=== PATIENT | female | born 1985 | race African-American/Black ===

== ENCOUNTER 2017-12-09 11:24 | Emergency (ER) | payer OTHER ==
[2017-12-09 12:32] LABS: NEGATIVE OBC STREP NEG
[2017-12-09 12:33] LABS: POSITIVE OBC STREP POS
== END 2017-12-09 12:30 | disposition home or self-care (01) ==
LOC: ER 12:30
DX: J03.90 Acute tonsillitis, unspecified (principal); H66.93 Otitis media, unspecified, bilateral
CPT/HCPCS: 87070; 87880; 99283

== ENCOUNTER 2018-08-08 20:07 | Emergency (ER) | payer OTHER ==
[~2018-08-08] VITALS: Ht 170.2 cm; Wt 127.0 kg
[~2018-08-08 20:07] MED LIST: AMOX875T PO; PRED50TA PO
[2018-08-08 20:36] VITALS: BP 163/82
[2018-08-08] MEDS ORDERED: AMMO226L TP (21:02)
[2018-08-08] MEDS ORDERED: MELO7.5T29 PO (21:02)
--- NOTE | 2018-08-08 21:02 | PHYS DOC ---
Past Medical History Past Medical History: No Pertinent History Past Surgical History: , Tubal ligation Alcohol Use: None Drug Use: None Adult General Chief Complaint Chief Complaint: SKIN PROBLEM HPI HPI Patient is a 33 year old female who presents with bilateral foot skin issue. This is been present and getting worse over the past month. No trauma. No fever. Nothing seems to make it worse or better. 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 Denies any prolonged submersion issues. Denies any polyuria, polydipsia, polyphagia consistent with diabetes. Pain is mild to moderate in intensity[] Review of Systems Review of Systems Constitutional: Denies fever or chills [] Eyes: Denies change in visual acuity, redness, or eye pain [] HENT: Denies nasal congestion or sore throat [] Respiratory: Denies cough or shortness of breath [] Cardiovascular: No chest pain or palpitations[] GI: Denies abdominal pain, nausea, vomiting, bloody stools or diarrhea [] : Denies dysuria or hematuria [] Musculoskeletal: Denies back pain or joint pain [] Integument: See history of present illness[] Neurologic: Denies headache, focal weakness or sensory changes [] Endocrine: Denies polyuria or polydipsia [] All other systems were reviewed and found to be within normal limits, except as documented in this note. Allergies Allergies Allergies Coded Allergies Type Severity Reaction Last Updated Verified No Known Drug Allergies 12/09/17 No Physical Exam Physical Exam Constitutional: Well developed, well nourished, no acute distress, non-toxic appearance. [] HENT: Normocephalic, atraumatic, bilateral external ears normal, oropharynx moist, no oral exudates, nose normal. [] Eyes: PERRLA, EOMI, conjunctiva normal, no discharge. [] Neck: Normal range of motion, no tenderness, supple, no stridor. [] Cardiovascular:Heart rate regular rhythm, no murmur [] Lungs & Thorax: Bilateral breath sounds clear to auscultation [] Abdomen: Not examined[] Skin: Warm, dry, no erythema, firm skin on the lateral portion of both feet, 1 cm x 4 cm in length. Runs parallel to the fifth metatarsal on the plantar surface. There is no petechiae. No skin sloughing. [] Back: No tenderness, no CVA tenderness. [] Extremities: No tenderness, no cyanosis, no clubbing, ROM intact, no edema. [] Neurologic: Alert and oriented X 3, normal motor function, normal sensory function, no focal deficits noted. [] Psychologic: Affect normal, judgement normal, mood normal. [] EKG EKG [] Radiology/Procedures Radiology/Procedures [] Course & Med Decision Making Course & Med Decision Making Pertinent Labs and Imaging studies reviewed. (See chart for details) Medical Decision making: No evidence of staph scalded skin syndrome, no toxic epidermal necrolysis, no cellulitis nor abscess.[] Dragon Disclaimer Dragon Disclaimer This electronic medical record was generated, in whole or in part, using a voice recognition dictation system. Departure Departure Impression: Primary Impression: Callus of foot Disposition: HOME, SELF-CARE Condition: GOOD Referrals: NO PCP (PCP) Patient Instructions: [facility] Additional Instructions: Follow-up with your regular doctor in 2 days. If you do not have regular doctor , list of local low-cost clinics will be provided for you. Return to the ER if worsening pain or any other concerns Scripts Meloxicam (MELOXICAM) 7.5 Mg Tablet 7.5 MG PO DAILY, #20 TAB Prov: DENA JEWELL DO 08/08/18 Ammonium Lactate (Lac-Hydrin Five) 226 Gm Lotion 1 SHAD TP BID, #226 GM Prov: DENA JEWELL DO 08/08/18 DENA JEWELL DO Aug 08, 2018 21:02
== END 2018-08-08 21:12 | disposition home or self-care (01) ==
LOC: ER 20:07
DX: L84 Corns and callosities (principal)
CPT/HCPCS: 99283

== ENCOUNTER 2019-07-15 13:22 | Emergency (ER) | payer OTHER ==
[~2019-07-15] VITALS: Ht 172.7 cm; Wt 127.0 kg
[~2019-07-15 13:22] MED LIST changes: +AMMO226L TP; +MELO7.5T29 PO
[2019-07-15] MEDS ORDERED: IV NORMAL SALINE 1000ML BAG 1,000 ML IV ONE (14:00)
[2019-07-15 14:06] LABS: BILIRUBIN,URINE NEGATIVE (NEG); CLARITY,URINE CLEAR; COLOR,URINE YELLOW; NITRITE,URINE NEGATIVE (NEG); PH,URINE 6.5; PROTEIN,URINE NEGATIVE (NEG-TRACE); UROBILINOGEN,URINE 0.2 mg/dL (0.2 mg/dL)
--- NOTE | 2019-07-15 14:17 | PHYS DOC ---
Past Medical History Past Medical History: No Pertinent History Past Surgical History: , Tubal ligation Alcohol Use: None Drug Use: None Adult General Chief Complaint Chief Complaint: SHOULDER INJURY [facility] HPI Patient is a 34-year-old female who presents with complaint of right shoulder pain. Patient states that she had been sitting on the toilet today and next thing she knew she was lying on the ground. She states that her daughter had found her lying on the ground and patient thinks that she must of had a syncopal episode. She doesn't recall having fallen. She does indicate that she has had syncope in the past. She denies any chest pain or shortness of breath. She rates the pain in her right shoulder tonight out of 10. She denies any head injury. She states that pain in her shoulder is worsened with movement.[] Review of Systems Review of Systems Constitutional: Denies fever or chills [] Eyes: Denies change in visual acuity, redness, or eye pain [] Respiratory: Denies cough or shortness of breath [] Cardiovascular: No additional information not addressed in HPI [] GI: Denies abdominal pain, nausea, vomiting or diarrhea [] Musculoskeletal: Complains of right shoulder pain [] Integument: Denies rash or skin lesions [] Neurologic: Denies headache, focal weakness or sensory changes. Positive syncopal episode [] All other systems were reviewed and found to be within normal limits, except as documented in this note. Current Medications Current Medications Current Medications Medications (Trade) Dose Ordered Sig/Radha Start Time Stop Time Status Last Admin Dose Admin Sodium Chloride 1,000 ml @ 1,000 mls/hr 1X ONCE 07/15/19 14:00 07/15/19 14:59 DC 07/15/19 14:25 1,000 MLS/HR Allergies Allergies Allergies Coded Allergies Type Severity Reaction Last Updated Verified No Known Drug Allergies 12/09/17 No Physical Exam Physical Exam Constitutional: Well developed, well nourished, no acute distress, non-toxic appearance. [] HENT: Normocephalic, atraumatic, bilateral external ears normal, oropharynx moist, no oral exudates, nose normal. [] Eyes: PERRLA, EOMI, conjunctiva normal, no discharge. [] Neck: Normal range of motion, no tenderness, supple. [] Cardiovascular: Regular rate and rhythm[] Lungs & Thorax: Bilateral breath sounds clear to auscultation [] Abdomen: Bowel sounds normal, soft, no tenderness. [] Skin: Warm, dry, no erythema, no rash. [] Extremities: No tenderness, no cyanosis, no clubbing, ROM intact. [] Neurologic: Alert and oriented X 3, no focal deficits noted. [] Current Patient Data Vital Signs Vital Signs Date Time Temp Pulse Resp B/P (MAP) Pulse Ox O2 Delivery O2 Flow Rate FiO2 07/15/19 13:50 97.6 105 16 165/90 (115) 98 Room Air 97.6 Lab Values Laboratory Tests Test 07/15/19 13:40 07/15/19 13:46 07/15/19 14:18 Urine Collection Type Unknown Urine Color Yellow Urine Clarity Clear Urine pH 6.5 Urine Specific [place] 1.020 Urine Protein Negative mg/dL (NEG-TRACE) Urine Glucose (UA) Negative mg/dL (NEG) Urine Ketones (Stick) Negative mg/dL (NEG) Urine Blood Negative (NEG) Urine Nitrite Negative (NEG) Urine Bilirubin Negative (NEG) Urine Urobilinogen Dipstick 0.2 mg/dL (0.2 mg/dL) Urine Leukocyte Esterase Negative (NEG) Urine RBC 0 /HPF (0-2) Urine WBC Occ /HPF (0-4) Urine Squamous Epithelial Cells Mod /LPF Urine Bacteria Few /HPF (0-FEW) POC Urine HCG, Qualitative Hcg negative (Negative) White Blood Count 8.1 x10^3/uL (4.0-11.0) Red Blood Count 4.65 x10^6/uL (3.50-5.40) Hemoglobin 12.4 g/dL (12.0-15.5) Hematocrit 38.1 % (36.0-47.0) Mean Corpuscular Volume 82 fL (79-100) Mean Corpuscular Hemoglobin 27 pg (25-35) Mean Corpuscular Hemoglobin Concent 33 g/dL (31-37) Red Cell Distribution Width 15.5 % (11.5-14.5) H Platelet Count 497 x10^3/uL (140-400) H Neutrophils (%) (Auto) 49 % (31-73) Lymphocytes (%) (Auto) 35 % (24-48) Monocytes (%) (Auto) 8 % (0-9) Eosinophils (%) (Auto) 5 % (0-3) H Basophils (%) (Auto) 3 % (0-3) Neutrophils # (Auto) 4.0 x10^3/uL (1.8-7.7) Lymphocytes # (Auto) 2.9 x10^3/uL (1.0-4.8) Monocytes # (Auto) 0.6 x10^3/uL (0.0-1.1) Eosinophils # (Auto) 0.4 x10^3/uL (0.0-0.7) Basophils # (Auto) 0.2 x10^3/uL (0.0-0.2) Sodium Level 138 mmol/L (136-145) Potassium Level 4.0 mmol/L (3.5-5.1) Chloride Level 101 mmol/L (98-107) Carbon Dioxide Level 31 mmol/L (21-32) Anion Gap 6 (6-14) Blood Urea Nitrogen 10 mg/dL (7-20) Creatinine 0.8 mg/dL (0.6-1.0) Estimated GFR (Cockcroft-Gault) 100.6 BUN/Creatinine Ratio 13 (6-20) Glucose Level 131 mg/dL (70-99) H Calcium Level 8.9 mg/dL (8.5-10.1) Magnesium Level 1.9 mg/dL (1.8-2.4) Total Bilirubin 0.2 mg/dL (0.2-1.0) Aspartate Amino Transferase (AST) 18 U/L (15-37) Alanine Aminotransferase (ALT) 25 U/L (14-59) Alkaline Phosphatase 89 U/L (46-116) Total Protein 7.3 g/dL (6.4-8.2) Albumin 3.0 g/dL (3.4-5.0) L Albumin/Globulin Ratio 0.7 (1.0-1.7) L Laboratory Tests 07/15/19 14:18 Laboratory Tests 07/15/19 14:18 EKG EKG [] Radiology/Procedures Radiology/Procedures [] Impressions: PROCEDURE: SHOULDER 2+V RIGHT Three-view right shoulder study Clinical indications: Right shoulder pain from injury after passing out today and hitting right shoulder. FINDINGS: No acute fracture or dislocation or osteolytic process is seen. No AC joint separation is seen. IMPRESSION: No acute osseous abnormality. Electronically signed by: Gustabo Marie MD (07/15/2019 2:38 PM) [facility] Course & Med Decision Making Course & Med Decision Making Pertinent Labs and Imaging studies reviewed. (See chart for details) [] Dragon Disclaimer Dragon Disclaimer This electronic medical record was generated, in whole or in part, using a voice recognition dictation system. Departure Departure Impression: Primary Impression: Vasovagal syncope Additional Impression: Sprain of right shoulder Disposition: HOME, SELF-CARE Condition: STABLE Referrals: NO PCP (PCP) Patient Instructions: Shoulder Sprain, Syncope Scripts Tramadol Hcl (TRAMADOL HCL) 50 Mg Tablet 50 MG PO Q6HRS PRN for PAIN, #1 TAB Prov: IDANIA CALABRESE Jr. DO 07/15/19 Problem Qualifiers Additional Impression: Sprain of right shoulder Encounter type: initial encounter Shoulder sprain type: unspecified sprain Qualified Codes: S43.401A - Unspecified sprain of right shoulder joint, initial encounter IDANIA CALABRESE Jr. DO Jul 15, 2019 14:17
[2019-07-15 14:20] LABS: BACTERIA,URINE FEW /HPF (0-FEW); RBC,URINE 0 /HPF (0-2); SQUAMOUS EPITHELIAL CELL,UR MOD /LPF; WBC,URINE OCC /HPF (0-4)
[2019-07-15 14:25] LABS: BASO # 0.2 x10^3/uL (0.0-0.2); BASO % 3 % (0-3); EOS # 0.4 x10^3/uL (0.0-0.7); EOS % 5 % (0-3); HEMATOCRIT 38.1 % (36.0-47.0); HEMOGLOBIN 12.4 g/dL (12.0-15.5); LYMPH # 2.9 x10^3/uL (1.0-4.8); LYMPH % 35 % (24-48); MEAN CORPUSCULAR HEMOGLOBIN 27 pg (25-35); MEAN CORPUSCULAR HGB CONC 33 g/dL (31-37); MEAN CORPUSCULAR VOLUME 82 fL (79-100); MONO # 0.6 x10^3/uL (0.0-1.1); MONO % 8 % (0-9); NEUT % 49 % (31-73); PLATELET COUNT 497 x10^3/uL (140-400); RED BLOOD COUNT 4.65 x10^6/uL (3.50-5.40); RED CELL DISTRIBUTION WIDTH 15.5 % (11.5-14.5); WHITE BLOOD COUNT 8.1 x10^3/uL (4.0-11.0)
[2019-07-15 14:33] LABS: CALCIUM 8.9 mg/dL (8.5-10.1); CREATININE 0.8 mg/dL (0.6-1.0); GFR 100.6
[2019-07-15 14:39] LABS: ALBUMIN/GLOBULIN RATIO 0.7 (1.0-1.7); MAGNESIUM 1.9 mg/dL (1.8-2.4); TOTAL BILIRUBIN 0.2 mg/dL (0.2-1.0); TOTAL PROTEIN 7.3 g/dL (6.4-8.2)
--- NOTE | 2019-07-15 14:41 | RAD ---
Three-view right shoulder study Clinical indications: Right shoulder pain from injury after passing out today and hitting right shoulder. FINDINGS: No acute fracture or dislocation or osteolytic process is seen. No AC joint separation is seen. IMPRESSION: No acute osseous abnormality. Electronically signed by: Gustabo Marie MD (07/15/2019 2:38 PM) [facility]
--- NOTE | 2019-07-15 14:50 | EKG ---
[facility] [address] [place] [address] Test Date: 2019-07-15 Test Time: 14:31:04 Pat Name: HILTON LLOYD Department: Room: Gender: F [employer]vesting [employer]: : [id number] Requested By: IDANIA CALABRESE Order Number: [id number] Reading MD: Measurements Intervals [place] Rate: 81 P: 38 WV: 164 QRS: 38 QRSD: 88 T: 11 QT: 344 QTc: 400 Interpretive Statements SINUS RHYTHM NO SPECIFIC ECG ABNORMALITIES RI6.01 No previous ECG available for comparison
[2019-07-15 17:30] VITALS: BP 133/70
[2019-07-15] MEDS ORDERED: TRAM50TA PO (17:31)
[2019-07-15] MEDS ORDERED: HYDROcodone/APAP 5/325MG 1 TAB TABLET PO ONE (17:45)
== END 2019-07-15 18:03 | disposition home or self-care (01) ==
LOC: ER 13:22
DX: S43.401A Unspecified sprain of right shoulder joint, initial encounter (principal); R55 Syncope and collapse; W18.39XA Other fall on same level, initial encounter; Y93.89 Activity, other specified; Y92.89 Other specified places as the place of occurrence of the external cause; Y99.8 Other external cause status
CPT/HCPCS: 36415; 73030; 80053; 81001; 81025; 83735; 85025; 93005; 96360; 96361; 99285; J7030